=== PATIENT | female | born 1980 | race Caucasian/White ===

== ENCOUNTER 2019-11-05 14:30 | Observation (INO) | payer OTHER ==
[2019-11-05] VITALS (8 sets, daily range): BP systolic 116–139; BP diastolic 73–90
[~2019-11-05] VITALS: Ht 162.6 cm; Wt 71.2 kg
[2019-11-05] MEDS ORDERED: IV RINGERS,LACTATED 1000ML 1,000 ML IV SCH (14:38)
[2019-11-05] MEDS ORDERED: fentaNYL PF VIAL 100 MCG/2 ML VIAL IV PRN (14:45)
[2019-11-05] MEDS ORDERED: ONDANSETRON PF 4 MG/2 ML VIAL. IV PRN (14:45)
[2019-11-05] MEDS ORDERED: MORPHINE SULFATE 2 MG/ML VIAL. IV PRN (14:45)
[2019-11-05] MEDS ORDERED: PROCHLORPERAZINE 10 MG/2 ML VIAL. IV PRN ×2 (14:45→16:45)
[2019-11-05] MEDS ORDERED: HYDROmorphone 2 MG/ML VIAL IV PRN ×3 (14:45→17:00)
[2019-11-05] MEDS ORDERED: LIDOCAINE 1% PF 2 ML VIAL. ID PRN (14:45)
[2019-11-05 14:57] LABS: U PREG PATIENT NEGATIVE (NEG)
[2019-11-05] MEDS ORDERED: SUCCINYLCHOLINE 200 MG/10 ML VIAL. ONE (14:57)
[2019-11-05] MEDS ORDERED: ROCURONIUM 50 MG/5 ML VIAL. ONE (14:57)
[2019-11-05] MEDS ORDERED: LIDOCAINE 2% PF 5 ML VIAL. ONE (14:57)
[2019-11-05] MEDS ORDERED: MIDAZOLAM HCL/PF 2 MG/2 ML VIAL. ONE (14:57)
[2019-11-05] MEDS ORDERED: DEXAMETHASONE SOD PHOS 4 MG/ML VIAL ONE (14:57)
[2019-11-05] MEDS ORDERED: PROPOFOL 20 ML IV ONE (14:57)
[2019-11-05] MEDS ORDERED: HYDR12.58 PO (15:01)
[2019-11-05] MEDS ORDERED: DROS4TAB PO (15:03)
[2019-11-05] MEDS ORDERED: MULT-245 PO (15:04)
[2019-11-05] MEDS ORDERED: BUPIVACAINE-EPI 0.5%-1:200000 MPF 30 ML VIAL. INJ ONE (16:03)
[2019-11-05] MEDS ORDERED: GLYCOPYRROLATE 1 MG/5 ML VIAL. ONE (16:21)
[2019-11-05] MEDS ORDERED: NEOSTIGMINE METHYLSULFATE 5 MG/5 ML SYRINGE. ONE (16:21)
[2019-11-05] MEDS ORDERED: fentaNYL PF VIAL 100 MCG/2 ML VIAL ONE (16:26)
--- NOTE | 2019-11-05 16:40 | PDOC4 ---
Operative Note Operative Note Preoperative Diagnosis: Acute Appendicitis Postoperative Diagnosis: Same Procedure: Laparoscopic appendectomy Surgeon: Yao [employer] Attorney: Rebecca ANDERSON Anesthesia: Gen. EBL: 10 mL Specimen: Appendix to pathology Drains: None Complications: None Indication: The patient is a 39-year-old female who reported to the emergency department with abdominal pain. The evaluation is consistent with acute appendicitis. The patient was offered surgical treatment with a laparoscopic appendectomy. The risks of surgery were discussed which include bleeding, infection, visceral injury, pain, anesthetic risk, potential need for additional surgery or procedure. The patient understands and would like to proceed. Description: The patient was taken to the operating room and placed supine on the operating table. Gen. anesthesia was performed. The abdomen was prepped with ChloraPrep and draped in a standard surgical manner. A supraumbilical incision was made through which a veress needle was inserted and a pneumoperitoneum was created. A visualized 5 mm trocar was inserted and the laparoscope was introduced. In the left lower quadrant a 5 mm trocar was inserted. In the suprapubic region a 12 mm trocar was inserted. The appendix was identified and appeared inflamed consistent with acute appendicitis. There was no clear nazia dence of perforation or periappendiceal abscess. The mesoappendix was bluntly from the appendix. The mesoappendix was controlled using several clips and it was divided. The appendix was then amputated off the cecum using an Endo HARITHA 45 stapling device. The appendix was then placed in an endoscopic bag and extracted at the suprapubic incision site. The fascia there was closed with 0 Vicryl and infiltrated with half percent Marcaine with epinephrine. The RLQ was visualized and the staple line appeared well intact and hemostasis was good. No other abnormalities were identified grossly. The remaining ports were removed and the pneumoperitoneum was relieved. The skin at all incision sites was closed with 4-0 Monocryl. Steri-Strips and dressings were applied. The patient tolerated the procedure well and was sent to the recovery room in stable condition. At the end of the case all counts were correct. JAME LE MD Nov 05, 2019 16:40
--- NOTE | 2019-11-05 16:42 | PDOC2 ---
CONSULT Date of Consult Date of Consult DATE: 11/05/19 TIME: 16:40 History of Present Illness Reason for Visit: The patient is a 39-year-old female who reported to the emergency department at [facility] with abdominal pain. The pain was located primarily in the lower midabdomen and has remained persistent throughout the day. She denies any nausea vomiting. Her evaluation included a CT scan which was positive for appendicitis. Past Medical History Cardiovascular: HTN Past Surgical History Past Surgical History Breast augmentation Social History No Drugs: None Current Medications Current Medications Current Medications Ondansetron HCl (Zofran) 4 mg PRN Q6HRS PRN IV NAUSEA/VOMITING; Start 11/05/19 at 14:45; Stop 11/06/19 at 14:44 Fentanyl Citrate (Fentanyl 2ml Vial) 25 mcg PRN Q5MIN PRN IV MILD PAIN 1-3; Start 11/05/19 at 14:45; Stop 11/06/19 at 14:44 Fentanyl Citrate (Fentanyl 2ml Vial) 50 mcg PRN Q5MIN PRN IV MODERATE TO SEVERE PAIN; Start 11/05/19 at 14:45; Stop 11/06/19 at 14:44 Morphine Sulfate (Morphine Sulfate) 1 mg PRN Q10MIN PRN IV SEVERE PAIN 7-10; Start 11/05/19 at 14:45; Stop 11/06/19 at 14:44 Ringer's Solution 1,000 ml @ 30 mls/hr Q24H IV Last administered on 11/05/19at 15:06; Start 11/05/19 at 14:38; Stop 11/06/19 at 02:37 Lidocaine HCl (Xylocaine-Mpf 1% 2ml Vial) 2 ml PRN 1X PRN ID PRIOR TO IV START; Start 11/05/19 at 14:45; Stop 11/06/19 at 14:44 Hydromorphone HCl (Dilaudid) 0.5 mg PRN Q10MIN PRN IV SEV PAIN, Second choice; Start 11/05/19 at 14:45; Stop 11/06/19 at 14:44 Prochlorperazine Edisylate (Compazine) 5 mg PACU PRN PRN IV NAUSEA, MRX1; Start 11/05/19 at 14:45; Stop 11/06/19 at 14:44 Propofol 20 ml @ As Directed STK-MED ONCE IV ; Start 11/05/19 at 14:57; Stop 11/05/19 at 14:57; Status DC Dexamethasone Sodium Phosphate (Decadron) 4 mg STK-MED ONCE .ROUTE ; Start 11/05/19 at 14:57; Stop 11/05/19 at 14:57; Status DC Lidocaine HCl (Lidocaine Pf 2% Vial) 5 ml STK-MED ONCE .ROUTE ; Start 11/05/19 at 14:57; Stop 11/05/19 at 14:57; Status DC Succinylcholine Chloride (Anectine) 200 mg STK-MED ONCE .ROUTE ; Start 11/05/19 at 14:57; Stop 11/05/19 at 14:57; Status DC Rocuronium [place] (Zemuron) 50 mg STK-MED ONCE .ROUTE ; Start 11/05/19 at 14:57; Stop 11/05/19 at 14:57; Status DC Midazolam HCl (Versed) 2 mg STK-MED ONCE .ROUTE ; Start 11/05/19 at 14:57; Stop 11/05/19 at 14:57; Status DC Bupivacaine HCl/ Epinephrine Bitart (Sensorcain-Epi 0.5%-1:[id number] Mpf) 30 ml STK-MED ONCE INJ Last administered on 11/05/19at 16:03; Start 11/05/19 at 16:03; Stop 11/05/19 at 16:12; Status DC Glycopyrrolate (Robinul) 1 mg STK-MED ONCE .ROUTE ; Start 11/05/19 at 16:21; Stop 11/05/19 at 16:22; Status DC Neostigmine [place] (Neostigmine Methylsulfate) 5 mg STK-MED ONCE .ROUTE ; Start 11/05/19 at 16:21; Stop 11/05/19 at 16:22; Status DC Fentanyl Citrate (Fentanyl 2ml Vial) 100 mcg STK-MED ONCE .ROUTE ; Start 11/05/19 at 16:26; Stop 11/05/19 at 16:26; Status DC Active Scripts Active Reported Multi Vitamin Daily (Multivitamin) 1 Each Tablet 1 Tab PO DAILY 30 Days Slynd (Drospirenone) 4 Mg Tablet 4 Mg PO DAILY Hydrochlorothiazide Tablet (Hydrochlorothiazide) 12.5 Mg Tablet 12.5 Mg PO DAILY Allergies Allergies: Coded Allergies: codeine (Verified Adverse Reaction, Mild, Nausea, 11/05/19) ROS General: No: Chills, Night Sweats, Fatigue, Malaise, Appetite, Other PSYCHOLOGICAL ROS: No: Anxiety, Behavioral Disorder, Concentration difficultie, Decreased libido, Depression, Disorientation, Hallucinations, Hostility, Irritablity, Memory difficulties, Mood Swings, Obsessive thoughts, Physical abuse, Sexual abuse, Sleep disturbances, Suicidal ideation, Other Eyes: No Blurry vision, No Decreased vision, No Double vision, No Dry eyes, No Excessive tearing, No Eye Pain, No Itchy Eyes, No Loss of vision, No Photophobia, No Scotomata, No Uses contacts, No Uses glasses, No Other HEENT: No: Heacaches, Visual Changes, Hearing change, Nasal congestion, Nasal discharge, Oral lesions, Sinus pain, Sore Throat, Epistaxis, Sneezing, Snoring, Tinnitus, Vertigo, Vocal changes, Other ALLERGY AND IMMUNOLOGY: No: Hives, Insect Bite Sensitivity, Itchy/Watery Eyes, Nasal Congestion, Post Nasal Drip, Seasonal Allergies, Other Hematological and Lymphatic: No: Bleeding Problems, Blood Clots, Blood Transfusions, Brusing, Night Sweats, Pallor, Swollen Lymph Nodes, Other ENDOCRINE: No: Breast Changes, Galactorrhea, Hair Pattern Changes, Hot Flashes, Malaise/lethargy, Mood Swings, Palpitations, Polydipsia/polyuria, Skin Changes, Temperature Intolerance, Unexpected Weight Changes, Other Respiratory: No: Cough, Hemoptysis, Orthopnea, Pleuritic Pain, Shortness of breath, SOB with excertion, Sputum Changes, Stridor, Tachypnea, Wheezing, Other Cardiovascular: No Chest Pain, No Palpitations, No Orthopnea, No Paroxysmal Noc. Dyspnea, No Edema, No Lt Headedness, No Other Gastrointestinal: Yes Abdominal Pain Genitourinary: No Dysuria, No Frequency, No Incontinence, No Hematuria, No Retention, No Discharge, No Urgency, No Pain, No Flank Pain, No Other, No , No , No , No , No , No , No Musculoskeletal: No Gait Disturbance, No Joint Pain, No Joint Stiffness, No Joint Swelling, No Muscle Pain, No Muscular Weakness, No Pain In:, No Swelling In:, No Other Skin: No Dry Skin, No Eczema, No Hair Changes, No Lumps, No Mole Changes, No Mottling, No Nail Changes, No Pruritus, No Rash, No Skin Lesion Changes, No Other, No Acne Physical Exam General: Alert, Oriented X3, Cooperative HEENT: Atraumatic Lungs: Clear to auscultation Heart: Regular rate Abdomen: Soft (tender in RLQ) Extremities: No clubbing, No cyanosis Skin: No rashes Neuro: Normal speech Psych/Mental Status: Mental status NL Vitals VITALS Vital Signs Date Time Temp Pulse Resp B/P (MAP) Pulse Ox O2 Delivery O2 Flow Rate FiO2 11/05/19 14:54 98.7 99 16 146/74 99 Room Air 98.7 Labs Labs Laboratory Tests Test 11/05/19 14:30 Urine Test Negative (NEG) Laboratory Tests Test 11/05/19 14:30 Urine Test Negative (NEG) Assessment/Plan Assessment/Plan 39-year-old female with clinical findings consistent with acute appendicitis. Plan is to proceed to the operating room for laparoscopic appendectomy. The details and risks of surgery were discussed with the patient. She understands and would like to proceed. JAME LE MD Nov 05, 2019 16:42
[2019-11-05] MEDS ORDERED: IV NORMAL SALINE 1000ML BAG 1,000 ML IV SCH (16:43)
[2019-11-05] MEDS: IV 1/2 NORMAL SALINE 1,000 ML IV SCH (16:43)
[2019-11-05] MEDS ORDERED: oxyCODONE/APAP 5/325 1 TAB TABLET PO PRN (16:45)
[2019-11-05] MEDS ORDERED: 0.9 % SODIUM CHLORIDE 10 ML DISP.SYRIN. IV PRN (16:45)
[2019-11-05] MEDS ORDERED: ONDANSETRON PF 4 MG/2 ML VIAL. IVP PRN (16:45)
[2019-11-05] MEDS ORDERED: NALOXONE 0.4 MG/ML VIAL. IV PRN (16:45)
[2019-11-05] MEDS: fentaNYL PF VIAL 100 MCG/2 ML VIAL IV PRN ×2 (17:07→17:21)
--- NOTE | 2019-11-05 17:30 | NUR ---
Pt admitted from PACU via bed. A&O X4, VSS, c/o pain 05/06, denies nausea, lap sites X3 CDI. Completed admission assessment. IVF infusing @ 100mL/hr, SCDS hooked to pumped and started, meal tray ordered, call light within reach. Will return to monitor.
[2019-11-05] MEDS ORDERED: SEVOFLURANE 61 TO 120 MINUTES. IH ONE (19:58)
[2019-11-05] MEDS: oxyCODONE/APAP 5/325 1 TAB TABLET PO PRN (22:58)
[2019-11-06] MEDS: IV 1/2 NORMAL SALINE 1,000 ML IV SCH ×2 (02:43→11:20)
[2019-11-06 03:28] VITALS: BP 106/64
[2019-11-06 07:00] VITALS: BP 120/73
--- NOTE | 2019-11-06 09:08 | HP ---
ADMIT DATE: HISTORY OF PRESENT ILLNESS: The patient is a 39-year-old female patient who presented to the Emergency Room of [facility] complaining of right lower quadrant pain. According to the patient, she has been complaining of pain in the right lower quadrant for months now. She was seen by her cloth mercerizer operator. She had a pelvic ultrasound done, which did not show any acute problems. She was put on a control medication, she has been taking for almost a month now. She apparently has been experiencing pain like this after every period but she has denied any vaginal bleeding or discharge. She was extensively investigated in the Emergency Room. Her lab work showed that her white cell count was normal and her chemistry was unremarkable. She did have a CT scan of the abdomen and pelvis, which basically showed that she has acute appendicitis. There is no evidence of perforation or abscess, multiple hypodense lesions throughout the liver and the absence of known malignancy. These are likely cysts. The smallest lesions are too small to characterize, the possibility of tiny hemangiomas is not excluded. She has suspected 3-cm complex left ovarian cyst or adjacent left ovarian dominant follicles, prominent bilateral renal collecting system without wilbert hydronephrosis. This can be due to hydration status with the patient and the patient was transferred to [facility] for definitive surgical treatment. PAST MEDICAL HISTORY: Significant for hypertension and borderline hyperlipidemia. PAST SURGICAL HISTORY: Significant for breast augmentation. ALLERGIES: SHE IS ALLERGIC TO CODEINE. MEDICATIONS: She is currently on control pill as well as hydrochlorothiazide 25 mg once a day. FAMILY HISTORY: She has one sister who is quadriplegic and has breast cancer. Mother is alive at age of 72 and has Alzheimer disease. Her father is alive at age of 68 and has hypertension, coronary artery disease, status post PCI with stent deployment. SOCIAL HISTORY: She is , has a daughter and a son. She never smoked, drinks wine mostly in the weekend. 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 PHYSICAL EXAMINATION: GENERAL: On arrival to the Emergency Room, she looked well and was clearly in no apparent respiratory distress. No pallor, jaundice, cyanosis, or thyromegaly. No jugular venous distension. No lower limb edema. VITAL SIGNS: Her heart rate was 79, blood pressure was 124/98, temperature 98.1, respiratory rate was 18, and oxygen saturation 100%. HEAD, EYES, EARS, NOSE AND THROAT: Showed normocephalic, atraumatic. NECK: Supple. HEART: Showed normal first and second heart sounds. No gallop or murmur. CHEST: Clear to auscultation. No crepitation or rhonchi. ABDOMEN: Distended. Tenderness mostly in the right lower quadrant. NEUROLOGIC: She was grossly intact. LABORATORY DATA: Showed a white cell count of 7400, hemoglobin 14, hematocrit 42, MCV 97, platelet count of 163,000. Her chemistry showed a serum sodium 137, potassium 3.7, chloride 99, bicarbonate 27, anion gap of 11, BUN 9, creatinine was 0.7, estimated GFR was 92 mL per minute. Her glucose was 98, calcium was 9. Total bilirubin, AST, ALT, alkaline phosphatase were normal. Total protein 7.6, albumin was 3.9. Serum lipase was 191. Again the CT scan showed she has acute appendicitis with no evidence of perforation or abscess and she has multiple hypodense areas in the liver. PLAN: The patient was transferred to [facility], kept n.p.o., started on IV fluid and we did consult the surgical team for definitive surgical treatment. CANDACE FONSECA MD DR: SHIVA/jeannette JOB#: [id number] / [id number]
[2019-11-06] MEDS: oxyCODONE/APAP 5/325 1 TAB TABLET PO PRN (09:54)
[2019-11-06 11:00] VITALS: BP 119/76
[2019-11-06] MEDS ORDERED: OXYC1TAB15 PO (12:58)
--- NOTE | 2019-11-06 13:03 | PDOC ---
SURGICAL PROGRESS NOTE Subjective tolerating diet pain managed ambulating Vital Signs Vital Signs Date Time Temp Pulse Resp B/P (MAP) Pulse Ox O2 Delivery O2 Flow Rate FiO2 11/06/19 11:00 97.6 101 18 119/76 (90) 98 Room Air 97.6 11/05/19 16:43 10 I&O Intake and Output 11/06/19 07:00 Intake Total 2260 ml Output Total 260 ml Balance 2000 ml Intake Oral 860 ml IV Total 1400 ml Output Urine Total 250 ml Estimated Blood Loss 10 ml # Voids 4 General: Alert, Oriented X3, Cooperative Abdomen: Soft, Other (lap dressings dry) Labs Laboratory Tests Test 11/05/19 14:30 Urine Test Negative (NEG) Laboratory Tests Test 11/05/19 14:30 Urine Test Negative (NEG) Assessment/Plan s/p appy ok to mt home KATHRYN LYON APRN Nov 06, 2019 13:03
--- NOTE | 2019-11-06 13:50 | NUR ---
Discharge instructions and belongings reviewed with patient, verbalized understanding. Patient was escorted out via ambulation by [place] NAVARRO accompanied by her and children.
--- NOTE | 2019-11-06 18:52 | DS ---
DATE OF DISCHARGE: 11/06/2019 HOSPITAL COURSE: The patient is a 39-year-old female patient who was admitted with a complaint of right lower quadrant pain. She was evaluated at [facility] and was found to have acute appendicitis, transferred to [facility], underwent a laparoscopic appendectomy. Postoperatively, she did very well. She tolerated her diet and decision was made to discharge her home. PHYSICAL EXAMINATION: GENERAL: When I saw her prior to discharge, she looked well and was clearly in no apparent respiratory distress. No pallor, jaundice, cyanosis, or thyromegaly. No jugular venous distension. No limb edema. VITAL SIGNS: Her heart rate was 101, blood pressure 119/76, temperature 97.6, respiratory rate was 18, and oxygen saturation was 98%. The rest of clinical exam is stable. DISCHARGE MEDICATIONS: She was discharged home to continue on hydrochlorothiazide 12.5 mg once a day, multivitamin 1 tablet once a day, Slynd 4 mg daily, and oxycodone/APAP 5/325 one tablet every 4 hours. FINAL DISCHARGE DIAGNOSES: Appendicitis, status post laparoscopic appendectomy, and hypertension. CANDACE FONSECA MD DR: SHIVA/jeannette JOB#: [id number] / [id number]
--- NOTE | 2019-11-09 16:06 | PATHOLOGY ---
[facility] Accession Number: [id number] . 01 Material submitted: . appendix - APPENDIX . 01 Clinical history: . Appendicitis . 02 Diagnosis: Appendix, appendectomy: - Acute appendicitis. (MAP:[facility] 11/09/2019) [facility] 11/09/2019 1237 Local . 02 Electronically signed: . Micheal Faulkner MD, Pathologist NPI- [id number] . 01 Gross description: . The specimen is received in formalin, labeled "Sheri Valentin, appendix". Received is a vermiform appendix measuring 5.5 cm in length by up to 1.1 cm in diameter with a moderate amount of attached mesoappendix. The serosal surface is light lopez to pink-infante and slightly shaggy in appearance with a slight amount of overlying exudate near the distal tip. The surgical margin is closed with a line of tamika. The tamika are removed the new margin is inked black. Sectioning reveals a patent lumen. The specimen is submitted representatively in cassettes A1 and A2, with the proximal margin and bisected tip submitted in cassette A1. ([facility]; 11/08/2019) QA/QA 11/09/2019 1236 Local . 02 Pathologist provided ICD-10: K35.80 . 02 CPT . 470197 Specimen Comment: A courtesy copy of this report has been sent to [phone], [phone] Specimen Comment: [id number] Specimen Comment: Report sent to / DR FONSECA Performed at: 01 [facility] [address], [place], [place] [id number] MD Jerrod Bird MD Phone: [phone] Performed at: 02 [facility] [address], [place] [id number] MD Melvin Gill MD Phone: [phone]
== END 2019-11-06 13:52 | disposition home or self-care (01) ==
LOC: 4 NORTH 14:33 → INTOOBSV 14:33
PROVIDERS: ADMIT Internal Medicine; ATTEND Surgery
DX: K35.80 Unspecified acute appendicitis (principal); I10 Essential (primary) hypertension; E78.5 Hyperlipidemia, unspecified
CPT/HCPCS: 44970; 81025; A7015; G0378; G0379; J0330; J1100; J1170; J2001; J2250; J2704; J2710; J3010; J3490; J7030; J7120; 88304; 96374